=== PATIENT | female | born 1995 | race African-American/Black ===

== ENCOUNTER 2018-04-28 13:41 | Emergency (ER) | payer MEDICAID ==
[2018-04-28 14:37] LABS: CALCIUM 8.9 mg/dL (8.5-10.1); CARBON DIOXIDE 19.3 mmol/L (21-32); CHLORIDE SERUM 104 mmol/L (98-107); GFR1 > 60 mL/min; GLUCOSE SERUM 116 mg/dL (74-106); POTASSIUM SERUM 3.3 mmol/L (3.5-5.1); SODIUM SERUM 138 mmol/L (136-145)
[2018-04-28 14:41] LABS: BASOPHIL % 0.3 % (0-2); PLATELET COUNT 264 x10^3mcL (130-400)
[2018-04-28 14:48] LABS: ALBUMIN 3.7 g/dL (3.4-5.0); ALKALINE PHOSPHATASE 103 U/L (46-116); ALT/SGPT 35 U/L (14-59); AST/SGOT 23 U/L (15-37); BILIRUBIN TOTAL 0.3 mg/dL (0.20-1.00)
[2018-04-28 14:54] LABS: RED CELL DISTRIBUTION WIDTH 14.6 % (11.5-14.5)
[2018-04-28 14:56] LABS: TOTAL PROTEIN, SERUM 8.4 g/dL (6.4-8.2)
[2018-04-28 16:35] LABS: AMPHETAMINE QUAL UR NONE DETECTED (See below)
[2018-04-29 18:21] VITALS: BP 124/60
== END 2018-04-29 18:21 ==
LOC: ED 13:41
PROVIDERS: Emergency Medicine
DX: T39.1X2A Poisoning by 4-Aminophenol derivatives, intentional self-harm, initial encounter (principal); Y92.89 Other specified places as the place of occurrence of the external cause
CPT/HCPCS: G0480; J0132; J1630; J2405; J2765

== ENCOUNTER 2018-10-19 21:53 | Emergency (ER) | payer OTHER ==
[~2018-10-19] VITALS: Ht 175.3 cm; Wt 113.4 kg
[2018-10-19 21:57] VITALS: Ht 175.3 cm; Wt 113.4 kg
[2018-10-19 23:00] LABS: BASOPHIL % 0.2 % (0-2); PLATELET COUNT 214 x10^3mcL (130-400)
[2018-10-19 23:05] LABS: CALCIUM 8.6 mg/dL (8.5-10.1); CARBON DIOXIDE 26.6 mmol/L (21-32); CHLORIDE SERUM 102 mmol/L (98-107); CREATININE SERUM 1.1 mg/dL (0.6-1.0); GFR1 > 60 mL/min; GLUCOSE SERUM 96 mg/dL (74-106); POTASSIUM SERUM 3.7 mmol/L (3.5-5.1); SODIUM SERUM 138 mmol/L (136-145)
[2018-10-19 23:10] LABS: ALBUMIN 3.6 g/dL (3.4-5.0); ALKALINE PHOSPHATASE 105 U/L (46-116); ALT/SGPT 28 U/L (14-59); AST/SGOT 17 U/L (15-37); BILIRUBIN TOTAL 0.3 mg/dL (0.20-1.00); TOTAL PROTEIN, SERUM 8.2 g/dL (6.4-8.2)
[2018-10-20 07:11] LABS: UA SPECIFIC GRAVITY 1.015 (1.005-1.035); microscopic required? YES; urine erythrocyte NEGATIVE (NEGATIVE)
--- NOTE | 2018-10-20 10:34 | NUR ---
Contacted Nilesh at [facility], [place] at [facility], No beds at this time, packet faxed for review for future placement. Will continue looking for placement.
[2018-10-20 16:01] LABS: AMPHETAMINE QUAL UR NONE DETECTED (See below)
[2018-10-20 17:35] VITALS: BP 135/72
== END 2018-10-20 17:35 | disposition home or self-care (01) ==
LOC: ED 21:53
PROVIDERS: Emergency Medicine
DX: T43.212A Poisoning by selective serotonin and norepinephrine reuptake inhibitors, intentional self-harm, initial encounter (principal); T14.91XA Suicide attempt, initial encounter; J45.909 Unspecified asthma, uncomplicated; Y92.89 Other specified places as the place of occurrence of the external cause
CPT/HCPCS: 36415; G0480